=== PATIENT | male | born 1970 | race Caucasian/White ===

== ENCOUNTER 2021-03-23 00:13 | Inpatient (IN) ==
[2021-03-23] MEDS ORDERED: Ondansetron 4 MG/2 ML VIAL IVP PRN ×4 (02:15→11:17)
[2021-03-23] MEDS ORDERED: Naloxone 0.4 MG/ML INJ IVP PRN ×4 (02:15→11:17)
[2021-03-23] MEDS ORDERED: Insulin Regular, Human 100 UNIT/ML IV PRN ×2 (02:20→11:17)
[2021-03-23] MEDS ORDERED: *HR* Dextrose 50 % in Water (Vial) 50 ML VIAL IVP PRN (02:20)
[2021-03-23] MEDS: 0.9 % Sodium Chloride w KCl 20 MEQ/1,000 ML MLS IVC SCH ×7 (03:36→23:41)
[2021-03-23 04:14] LABS: VBG HCO3 12 mEq/L (21-27); VBG PCO2 29 mmHg (41-51); VBG PH 7.24 pH Units (7.32-7.42); VBG PO2 40 mmHg (25-50)
[2021-03-23 04:16] LABS: Basophils # 0.1 K/mcL (0.0-0.2); Basophils % 0.6 %; Eosinophils # 0.1 K/mcL (0.0-0.6); Eosinophils % 0.3 %; Hematocrit 40.2 % (37.5-50.1); Hemoglobin 13.2 g/dL (12.9-16.9); Immature Granulocytes % 1.6 % (0-4); Lymphocytes # 1.6 K/mcL (0.6-4.6); Lymphocytes % 10.1 %; Mean Corpuscular HGB Conc 32.8 g/dL (31.6-35.5); Mean Corpuscular Hemoglobin 30.1 pg (28.0-33.3); Mean Corpuscular Volume 91.6 fL (83.0-100.0); Mean Platelet Volume 10.9 fL (9.4-12.4); Monocytes # 1.1 K/mcL (0.0-1.3); Neutrophils # 12.6 K/mcL (1.6-8.9); Platelet Count 259 K/mcL (140-400); Red Blood Count 4.39 M/mcL (4.19-5.50); Red Cell Distribution Width 11.9 % (11.5-14.5); Segmented Neutrophils % 80.4 %; White Blood Count 15.7 K/mcL (4.3-11.1)
[2021-03-23 04:33] LABS: BUN/Creatinine Ratio 22 (6-26); Blood Urea Nitrogen 27 mg/dL (6-20); Calcium 8.6 mg/dL (8.6-10.3); Carbon Dioxide 11 mEq/L (23-29); Chloride 98 mEq/L (98-107); Glucose 199 mg/dL (70-105); Magnesium 2.1 mg/dL (1.6-2.6); Osmolality,Calculated 277 (280-300); Phosphorous 3.1 mg/dL (2.7-4.5); Potassium 3.8 mEq/L (3.5-5.1); Sodium 128 mEq/L (136-145); eGFR For African Americans > 60 (> 60); eGFR For Non-African Americans > 60 (> 60)
[2021-03-23 04:42] LABS: Estimated Average Glucose 367 mg/dl; Hemoglobin A1C 14.4 %
[2021-03-23] MEDS: D5% in 0.45% NACL w KCl 20 MEQ/1,000 ML MLS IVC PRN ×4 (04:47→18:09)
[2021-03-23] MEDS ORDERED: *HR* Heparin 5,000 UNIT/ML VIAL SQ SCH (06:00)
[2021-03-23] MEDS ORDERED: Cefepime HCl 2,000 MG in Water for inj. (sterile) 20 ML IVP SCH (06:00)
[2021-03-23 06:43] LABS: INR 1.2; Prothrombin Time 13.6 Seconds (9.4-12.1)
[2021-03-23 06:45] LABS: Activated Partial Thrombo Time 26.3 Seconds (26.0-36.0)
[2021-03-23 06:57] LABS: BUN/Creatinine Ratio 23 (6-26); Blood Urea Nitrogen 25 mg/dL (6-20); Calcium 8.4 mg/dL (8.6-10.3); Carbon Dioxide 14 mEq/L (23-29); Chloride 100 mEq/L (98-107); Glucose 215 mg/dL (70-105); Osmolality,Calculated 277 (280-300); Potassium 3.7 mEq/L (3.5-5.1); Sodium 128 mEq/L (136-145); eGFR For African Americans > 60 (> 60); eGFR For Non-African Americans > 60 (> 60)
[2021-03-23 07:09] LABS: Fibrinogen > 1000 mg/dL (169-393)
[2021-03-23] MEDS ORDERED: Clindamycin 600 MG/50 ML 600 MG/50 ML IV.SOLN IVPB SCH (08:00)
[2021-03-23] MEDS ORDERED: MetroNIDAZOLE 500 MG/100 ML 500 MG/100 ML BAG IVPB SCH (08:00)
[2021-03-23] MEDS ORDERED: *HR* FentaNYL (PF) 100 MCG/2 ML VIAL ONE (09:14)
[2021-03-23] MEDS ORDERED: *HR* Midazolam HCl 2 MG/2 ML VIAL ONE (09:14)
[2021-03-23] MEDS ORDERED: *HR* Propofol 200 MG/20 ML VIAL IVP ONE (09:14)
[2021-03-23] MEDS ORDERED: Ondansetron 4 MG/2 ML VIAL ONE (09:16)
[2021-03-23] MEDS ORDERED: Lidocaine HCL 4 ML Topical Solution (Laryng-O-Jet Kit Sterile Pak) TP ONE (09:16)
[2021-03-23] MEDS ORDERED: Lidocaine -MPF 2% 2 ML VIAL ONE (09:16)
[2021-03-23] MEDS ORDERED: *HR* Succinylcholine 200 MG/10 ML VIAL IVP ONE (09:16)
[2021-03-23] MEDS ORDERED: *HR* FentaNYL (PF) 100 MCG/2 ML VIAL IVP PRN ×2 (09:31→11:17)
[2021-03-23] MEDS ORDERED: Nitroglycerin 0.4 MG TAB.SUBL SL PRN ×2 (09:31→11:17)
[2021-03-23] MEDS ORDERED: Albuterol 2.5 MG/3 ML NEBULIZER IH PRN ×2 (09:31→11:17)
[2021-03-23] MEDS ORDERED: Vancomycin 1,250 MG/262.5 ML IV.SOLN IVPB SCH (10:00)
[2021-03-23] MEDS: *HR* Dextrose 50 % in Water (Vial) 50 ML VIAL IVP PRN (11:39)
[2021-03-23 12:02] LABS: BUN/Creatinine Ratio 21 (6-26); Blood Urea Nitrogen 21 mg/dL (6-20); Calcium 8.2 mg/dL (8.6-10.3); Carbon Dioxide 14 mEq/L (23-29); Chloride 106 mEq/L (98-107); Glucose 63 mg/dL (70-105); Osmolality,Calculated 271 (280-300); Sodium 130 mEq/L (136-145); eGFR For African Americans > 60 (> 60); eGFR For Non-African Americans > 60 (> 60)
[2021-03-23 12:04] LABS: VBG HCO3 17 mEq/L (21-27); VBG PCO2 31 mmHg (41-51); VBG PH 7.36 pH Units (7.32-7.42); VBG PO2 201 mmHg (25-50)
[2021-03-23] MEDS: Cefepime HCl 2,000 MG in Water for inj. (sterile) 20 ML IVP SCH ×2 (13:56→21:57)
[2021-03-23 14:45] LABS: BUN/Creatinine Ratio 21 (6-26); Blood Urea Nitrogen 22 mg/dL (6-20); Calcium 8.4 mg/dL (8.6-10.3); Carbon Dioxide 13 mEq/L (23-29); Chloride 104 mEq/L (98-107); Glucose 184 mg/dL (70-105); Osmolality,Calculated 272 (280-300); Potassium 4.7 mEq/L (3.5-5.1); Sodium 127 mEq/L (136-145); eGFR For African Americans > 60 (> 60); eGFR For Non-African Americans > 60 (> 60)
[2021-03-23 16:06] LABS: VBG HCO3 16 mEq/L (21-27); VBG PCO2 30 mmHg (41-51); VBG PH 7.33 pH Units (7.32-7.42); VBG PO2 119 mmHg (25-50)
[2021-03-23 16:22] LABS: BUN/Creatinine Ratio 20 (6-26); Blood Urea Nitrogen 23 mg/dL (6-20); Carbon Dioxide 15 mEq/L (23-29); Chloride 105 mEq/L (98-107); Glucose 200 mg/dL (70-105); Osmolality,Calculated 275 (280-300); Potassium 4.6 mEq/L (3.5-5.1); Sodium 128 mEq/L (136-145); eGFR For African Americans > 60 (> 60); eGFR For Non-African Americans > 60 (> 60)
[2021-03-23] MEDS: MetroNIDAZOLE 500 MG/100 ML 500 MG/100 ML BAG IVPB SCH (16:22)
[2021-03-23] MEDS: *HR* Heparin 5,000 UNIT/ML VIAL SQ SCH (16:23)
[2021-03-23 19:42] LABS: VBG HCO3 16 mEq/L (21-27); VBG PCO2 30 mmHg (41-51); VBG PH 7.34 pH Units (7.32-7.42); VBG PO2 101 mmHg (25-50)
[2021-03-23 19:58] LABS: BUN/Creatinine Ratio 18 (6-26); Blood Urea Nitrogen 22 mg/dL (6-20); Calcium 8.3 mg/dL (8.6-10.3); Carbon Dioxide 16 mEq/L (23-29); Chloride 111 mEq/L (98-107); Glucose 127 mg/dL (70-105); Osmolality,Calculated 267 (280-300); Potassium 3.9 mEq/L (3.5-5.1); Sodium 126 mEq/L (136-145); eGFR For African Americans > 60 (> 60); eGFR For Non-African Americans > 60 (> 60)
[2021-03-23] MEDS: Vancomycin 1,250 MG/262.5 ML IV.SOLN IVPB SCH (21:57)
[2021-03-24] MEDS: D5% in 0.45% NACL w KCl 20 MEQ/1,000 ML MLS IVC PRN ×2 (01:03→07:43)
[2021-03-24] MEDS: MetroNIDAZOLE 500 MG/100 ML 500 MG/100 ML BAG IVPB SCH ×4 (01:04→23:16)
[2021-03-24 01:58] LABS: BUN/Creatinine Ratio 18 (6-26); Blood Urea Nitrogen 21 mg/dL (6-20); Calcium 8.1 mg/dL (8.6-10.3); Carbon Dioxide 14 mEq/L (23-29); Chloride 109 mEq/L (98-107); Glucose 118 mg/dL (70-105); Osmolality,Calculated 276 (280-300); Potassium 4.3 mEq/L (3.5-5.1); Sodium 131 mEq/L (136-145); eGFR For African Americans > 60 (> 60); eGFR For Non-African Americans > 60 (> 60)
[2021-03-24] MEDS: 0.9 % Sodium Chloride w KCl 20 MEQ/1,000 ML MLS IVC SCH ×3 (02:36→07:46)
[2021-03-24] MEDS ORDERED: Permethrin Cream Rinse 60 ML LIQUID TP ONE (03:57)
[2021-03-24] MEDS: *HR* Heparin 5,000 UNIT/ML VIAL SQ SCH ×2 (04:43→18:27)
[2021-03-24] MEDS: Cefepime HCl 2,000 MG in Water for inj. (sterile) 20 ML IVP SCH ×3 (04:52→21:26)
[2021-03-24 05:03] LABS: Basophils % 0.2 %; Hematocrit 35.1 % (37.5-50.1); Immature Granulocytes % 1.6 % (0-4); Lymphocytes # 0.8 K/mcL (0.6-4.6); Lymphocytes % 6.2 %; Mean Corpuscular HGB Conc 34.2 g/dL (31.6-35.5); Mean Corpuscular Hemoglobin 30.5 pg (28.0-33.3); Mean Corpuscular Volume 89.1 fL (83.0-100.0); Monocytes # 0.9 K/mcL (0.0-1.3); Monocytes % 7.3 %; Neutrophils # 10.2 K/mcL (1.6-8.9); Platelet Count 254 K/mcL (140-400); Red Blood Count 3.94 M/mcL (4.19-5.50); Red Cell Distribution Width 11.8 % (11.5-14.5); Segmented Neutrophils % 84.7 %; White Blood Count 12.1 K/mcL (4.3-11.1)
[2021-03-24 05:20] LABS: BUN/Creatinine Ratio 17 (6-26); Blood Urea Nitrogen 20 mg/dL (6-20); Calcium 8.2 mg/dL (8.6-10.3); Carbon Dioxide 14 mEq/L (23-29); Chloride 108 mEq/L (98-107); Glucose 221 mg/dL (70-105); Osmolality,Calculated 281 (280-300); Sodium 131 mEq/L (136-145); eGFR For African Americans > 60 (> 60); eGFR For Non-African Americans > 60 (> 60)
[2021-03-24] MEDS: Vancomycin 1,250 MG/262.5 ML IV.SOLN IVPB SCH ×2 (09:08→23:12)
[2021-03-24] MEDS: *HR* Dextrose 50 % in Water (Vial) 50 ML VIAL IVP PRN (10:07)
[2021-03-24 10:16] LABS: BUN/Creatinine Ratio 16 (6-26); Blood Urea Nitrogen 20 mg/dL (6-20); Calcium 8.4 mg/dL (8.6-10.3); Carbon Dioxide 17 mEq/L (23-29); Chloride 109 mEq/L (98-107); Glucose 83 mg/dL (70-105); Osmolality,Calculated 278 (280-300); Potassium 3.7 mEq/L (3.5-5.1); Sodium 133 mEq/L (136-145); eGFR For African Americans > 60 (> 60); eGFR For Non-African Americans > 60 (> 60)
[2021-03-24] MEDS ORDERED: Insulin DETEMIR 100 UNIT/ML X5UNITS SUBQ ONE (13:59)
[2021-03-24 14:53] LABS: BUN/Creatinine Ratio 18 (6-26); Blood Urea Nitrogen 21 mg/dL (6-20); Carbon Dioxide 15 mEq/L (23-29); Chloride 108 mEq/L (98-107); Glucose 265 mg/dL (70-105); Osmolality,Calculated 284 (280-300); Potassium 3.9 mEq/L (3.5-5.1); Sodium 131 mEq/L (136-145); eGFR For African Americans > 60 (> 60); eGFR For Non-African Americans > 60 (> 60)
[2021-03-24] MEDS ORDERED: D5% in Water 1,000 ML IVC PRN (16:04)
[2021-03-24] MEDS ORDERED: Dextrose Gel 15 GM/37.5 ML TUBE PO PRN ×2 (16:04)
[2021-03-24] MEDS ORDERED: *HR* Dextrose 50 % in Water (Vial) 50 ML VIAL IVP PRN (16:04)
[2021-03-24] MEDS: polyethylene glycoL 3350 17 GM POWD.PACK PO SCH (18:27)
[2021-03-24] MEDS: Insulin LISPRO 300 UNITS/3 ML VIAL SUBQ SCH ×2 (18:27→21:28)
[2021-03-24] MEDS: Sennosides/Docusate Sodium TABLET PO SCH (21:26)
[2021-03-24] MEDS: Nicotine 14 MG PATCH.TD24 TD SCH (22:04)
[2021-03-25 01:04] LABS: Hematocrit 35.6 % (37.5-50.1); Hemoglobin 11.7 g/dL (12.9-16.9); Mean Corpuscular HGB Conc 32.9 g/dL (31.6-35.5); Mean Corpuscular Hemoglobin 29.3 pg (28.0-33.3); Mean Corpuscular Volume 89.2 fL (83.0-100.0); Mean Platelet Volume 10.5 fL (9.4-12.4); Platelet Count 259 K/mcL (140-400); Red Blood Count 3.99 M/mcL (4.19-5.50); White Blood Count 9.7 K/mcL (4.3-11.1)
[2021-03-25 01:45] LABS: BUN/Creatinine Ratio 17 (6-26); Blood Urea Nitrogen 19 mg/dL (6-20); Calcium 8.3 mg/dL (8.6-10.3); Carbon Dioxide 14 mEq/L (23-29); Chloride 110 mEq/L (98-107); Glucose 183 mg/dL (70-105); Osmolality,Calculated 281 (280-300); Potassium 3.8 mEq/L (3.5-5.1); Sodium 132 mEq/L (136-145); eGFR For African Americans > 60 (> 60); eGFR For Non-African Americans > 60 (> 60)
[2021-03-25] MEDS: Cefepime HCl 2,000 MG in Water for inj. (sterile) 20 ML IVP SCH ×3 (05:55→21:21)
[2021-03-25] MEDS: *HR* Heparin 5,000 UNIT/ML VIAL SQ SCH ×2 (05:55→16:11)
[2021-03-25] MEDS: Vancomycin 1,250 MG/262.5 ML IV.SOLN IVPB SCH ×2 (09:53→21:22)
[2021-03-25] MEDS: MetroNIDAZOLE 500 MG/100 ML 500 MG/100 ML BAG IVPB SCH ×3 (09:56→23:14)
[2021-03-25] MEDS: polyethylene glycoL 3350 17 GM POWD.PACK PO SCH (09:59)
[2021-03-25] MEDS: Insulin LISPRO 300 UNITS/3 ML VIAL SUBQ SCH ×4 (09:59→21:23)
[2021-03-25] MEDS: Sennosides/Docusate Sodium TABLET PO SCH ×2 (09:59→21:23)
[2021-03-25] MEDS: Nicotine 14 MG PATCH.TD24 TD SCH (09:59)
[2021-03-25] MEDS: Insulin DETEMIR 100 UNIT/ML X5UNITS SUBQ SCH (12:42)
[2021-03-26 04:48] LABS: VBG HCO3 19 mEq/L (21-27); VBG PCO2 31 mmHg (41-51); VBG PO2 92 mmHg (25-50)
[2021-03-26 05:12] LABS: Hematocrit 35.5 % (37.5-50.1); Hemoglobin 12.1 g/dL (12.9-16.9); Mean Corpuscular HGB Conc 34.1 g/dL (31.6-35.5); Mean Corpuscular Hemoglobin 30.3 pg (28.0-33.3); Mean Corpuscular Volume 88.8 fL (83.0-100.0); Mean Platelet Volume 10.4 fL (9.4-12.4); Platelet Count 279 K/mcL (140-400); Red Cell Distribution Width 11.9 % (11.5-14.5)
[2021-03-26 05:28] LABS: BUN/Creatinine Ratio 16 (6-26); Blood Urea Nitrogen 16 mg/dL (6-20); Calcium 8.6 mg/dL (8.6-10.3); Carbon Dioxide 21 mEq/L (23-29); Chloride 108 mEq/L (98-107); Glucose 112 mg/dL (70-105); Osmolality,Calculated 282 (280-300); Potassium 3.8 mEq/L (3.5-5.1); Sodium 135 mEq/L (136-145); eGFR For African Americans > 60 (> 60); eGFR For Non-African Americans > 60 (> 60)
[2021-03-26] MEDS: Cefepime HCl 2,000 MG in Water for inj. (sterile) 20 ML IVP SCH ×2 (06:39→15:40)
[2021-03-26] MEDS: *HR* Heparin 5,000 UNIT/ML VIAL SQ SCH (06:39)
[2021-03-26] MEDS: Insulin LISPRO 300 UNITS/3 ML VIAL SUBQ SCH ×2 (08:49→15:33)
[2021-03-26] MEDS: Sennosides/Docusate Sodium TABLET PO SCH (08:50)
[2021-03-26] MEDS: Nicotine 14 MG PATCH.TD24 TD SCH (08:50)
[2021-03-26] MEDS: polyethylene glycoL 3350 17 GM POWD.PACK PO SCH (08:50)
[2021-03-26] MEDS: MetroNIDAZOLE 500 MG/100 ML 500 MG/100 ML BAG IVPB SCH ×2 (08:51→15:42)
[2021-03-26] MEDS: Insulin DETEMIR 100 UNIT/ML X5UNITS SUBQ SCH (08:52)
[2021-03-26] MEDS: Vancomycin 1,250 MG/262.5 ML IV.SOLN IVPB SCH (10:10)
[2021-03-26] MEDS ORDERED: Nystatin Cream 15 GM TUBE TP SCH (14:00)
[2021-03-26] MEDS ORDERED: Ketoconazole 2% CRM 15 GM TUBE TP SCH (14:00)
[2021-03-26] MEDS ORDERED: Clotrimazole 1% CRM 15 GM TUBE TP SCH (14:30)
[2021-03-26] MEDS ORDERED: Isovue-370 500 ML BOTTLE IVP ONE (14:34)
[2021-03-26] MEDS ORDERED: Bupivacaine/EPI 1:200k 0.25% 50 ML VIAL ONE (17:01)
[2021-03-26] MEDS ORDERED: ROPIVACAINE/PF/NS 0.25% 1 EACH SYRINGE INTRAART ONE (17:01)
[2021-03-26] MEDS ORDERED: *HR* FentaNYL (PF) 100 MCG/2 ML VIAL ONE (17:31)
[2021-03-26] MEDS ORDERED: Lidocaine -MPF 2% 2 ML VIAL ONE (17:31)
[2021-03-26] MEDS ORDERED: *HR* Midazolam HCl 2 MG/2 ML VIAL ONE (17:32)
[2021-03-26] MEDS ORDERED: *HR* Propofol 200 MG/20 ML VIAL IVP ONE (17:32)
[2021-03-26] MEDS ORDERED: Ondansetron 4 MG/2 ML VIAL ONE (17:33)
[2021-03-26] MEDS ORDERED: Bupivacaine-MPF 0.25% 10 ML VIAL ONE (17:55)
[2021-03-26] MEDS ORDERED: Famotidine 20 MG/2 ML VIAL ONE (17:57)
[2021-03-26] MEDS ORDERED: Acetaminophen IV 1,000 MG/100 ML BAG IVPB ONE (17:57)
[2021-03-26] MEDS ORDERED: D5% in Water 1,000 ML IVC PRN (19:44)
[2021-03-26] MEDS ORDERED: Naloxone 0.4 MG/ML INJ IVP PRN (19:44)
[2021-03-26] MEDS ORDERED: Ondansetron 4 MG/2 ML VIAL IVP PRN (19:44)
[2021-03-26] MEDS ORDERED: Dextrose Gel 15 GM/37.5 ML TUBE PO PRN ×2 (19:44)
[2021-03-26] MEDS ORDERED: *HR* Dextrose 50 % in Water (Vial) 50 ML VIAL IVP PRN (19:44)
[2021-03-26] MEDS ORDERED: Nitroglycerin 0.4 MG TAB.SUBL SL PRN (19:44)
[2021-03-26] MEDS ORDERED: Vancomycin 1,250 MG/262.5 ML IV.SOLN IVPB SCH (22:00)
[2021-03-27] MEDS: Insulin LISPRO 300 UNITS/3 ML VIAL SUBQ SCH ×5 (00:53→22:51)
[2021-03-27] MEDS: Cefepime HCl 2,000 MG in Water for inj. (sterile) 20 ML IVP SCH ×4 (00:54→22:51)
[2021-03-27] MEDS: Sennosides/Docusate Sodium TABLET PO SCH ×3 (00:54→23:08)
[2021-03-27] MEDS: Clotrimazole 1% CRM 15 GM TUBE TP SCH ×2 (00:56→07:32)
[2021-03-27] MEDS: MetroNIDAZOLE 500 MG/100 ML 500 MG/100 ML BAG IVPB SCH ×3 (01:01→16:46)
[2021-03-27] MEDS: *HR* Heparin 5,000 UNIT/ML VIAL SQ SCH ×2 (06:08→16:49)
[2021-03-27 06:40] LABS: Hematocrit 37.9 % (37.5-50.1); Hemoglobin 12.5 g/dL (12.9-16.9); Mean Corpuscular Hemoglobin 30.1 pg (28.0-33.3); Mean Corpuscular Volume 91.3 fL (83.0-100.0); Mean Platelet Volume 10.6 fL (9.4-12.4); Platelet Count 257 K/mcL (140-400); Red Blood Count 4.15 M/mcL (4.19-5.50); Red Cell Distribution Width 12.1 % (11.5-14.5)
[2021-03-27 06:42] LABS: White Blood Count 16.5 K/mcL (4.3-11.1)
[2021-03-27 06:59] LABS: BUN/Creatinine Ratio 20 (6-26); Blood Urea Nitrogen 23 mg/dL (6-20); Calcium 8.5 mg/dL (8.6-10.3); Carbon Dioxide 18 mEq/L (23-29); Chloride 98 mEq/L (98-107); Glucose 423 mg/dL (70-105); Osmolality,Calculated 292 (280-300); Potassium 4.6 mEq/L (3.5-5.1); Sodium 130 mEq/L (136-145); eGFR For African Americans > 60 (> 60); eGFR For Non-African Americans > 60 (> 60)
[2021-03-27] MEDS: Nicotine 14 MG PATCH.TD24 TD SCH (07:29)
[2021-03-27] MEDS: polyethylene glycoL 3350 17 GM POWD.PACK PO SCH (07:32)
[2021-03-27] MEDS ORDERED: Insulin DETEMIR 100 UNIT/ML X5UNITS SUBQ SCH (09:00)
[2021-03-27 11:27] LABS: Creatine Kinase 32 Units/L (30-223)
[2021-03-27] MEDS: Ringers Solution, Lactated 1,000 ML IVC SCH ×2 (12:13→22:47)
[2021-03-27] MEDS ORDERED: Insulin DETEMIR 100 UNIT/ML X5UNITS SUBQ ONE (14:28)
[2021-03-27] MEDS ORDERED: Insulin Human Regular 8 UNIT in 0.9 % Sodium Chloride 10 ML IV ONE (17:01)
[2021-03-27] MEDS: Insulin DETEMIR 100 UNIT/ML X5UNITS SUBQ SCH (22:50)
[2021-03-28] MEDS: MetroNIDAZOLE 500 MG/100 ML 500 MG/100 ML BAG IVPB SCH ×2 (01:08→08:20)
[2021-03-28 06:00] LABS: Hematocrit 33.6 % (37.5-50.1); Hemoglobin 11.6 g/dL (12.9-16.9); Mean Corpuscular HGB Conc 34.5 g/dL (31.6-35.5); Mean Corpuscular Hemoglobin 30.5 pg (28.0-33.3); Mean Corpuscular Volume 88.4 fL (83.0-100.0); Platelet Count 234 K/mcL (140-400); Red Cell Distribution Width 11.9 % (11.5-14.5); White Blood Count 16.8 K/mcL (4.3-11.1)
[2021-03-28] MEDS: Cefepime HCl 2,000 MG in Water for inj. (sterile) 20 ML IVP SCH ×3 (06:03→21:55)
[2021-03-28] MEDS: *HR* Heparin 5,000 UNIT/ML VIAL SQ SCH ×2 (06:04→17:14)
[2021-03-28 06:38] LABS: BUN/Creatinine Ratio 24 (6-26); Blood Urea Nitrogen 22 mg/dL (6-20); Calcium 8.1 mg/dL (8.6-10.3); Carbon Dioxide 23 mEq/L (23-29); Chloride 106 mEq/L (98-107); Glucose 136 mg/dL (70-105); Osmolality,Calculated 281 (280-300); Potassium 3.4 mEq/L (3.5-5.1); Sodium 133 mEq/L (136-145); eGFR For African Americans > 60 (> 60); eGFR For Non-African Americans > 60 (> 60)
[2021-03-28] MEDS: Sennosides/Docusate Sodium TABLET PO SCH ×2 (08:19→23:02)
[2021-03-28] MEDS: Nicotine 14 MG PATCH.TD24 TD SCH (08:19)
[2021-03-28] MEDS: Insulin LISPRO 300 UNITS/3 ML VIAL SUBQ SCH ×4 (08:20→23:02)
[2021-03-28] MEDS: polyethylene glycoL 3350 17 GM POWD.PACK PO SCH (08:20)
[2021-03-28] MEDS: Insulin DETEMIR 100 UNIT/ML X5UNITS SUBQ SCH ×2 (08:22→20:44)
[2021-03-28] MEDS: Nystatin Cream 15 GM TUBE TP SCH ×2 (11:09→22:00)
[2021-03-28] MEDS: metroNIDAZOLE 500 MG TABLET PO SCH (20:42)
[2021-03-28] MEDS: Ringers Solution, Lactated 1,000 ML IVC SCH ×3 (20:44→23:03)
[2021-03-29] MEDS: Ringers Solution, Lactated 1,000 ML IVC SCH ×3 (04:23→23:57)
[2021-03-29 05:05] LABS: Hematocrit 32.8 % (37.5-50.1); Mean Corpuscular HGB Conc 33.5 g/dL (31.6-35.5); Mean Corpuscular Hemoglobin 30.3 pg (28.0-33.3); Mean Corpuscular Volume 90.4 fL (83.0-100.0); Platelet Count 192 K/mcL (140-400); Red Blood Count 3.63 M/mcL (4.19-5.50); Red Cell Distribution Width 11.9 % (11.5-14.5); White Blood Count 13.1 K/mcL (4.3-11.1)
[2021-03-29 05:21] LABS: BUN/Creatinine Ratio 21 (6-26); Blood Urea Nitrogen 18 mg/dL (6-20); Calcium 8.1 mg/dL (8.6-10.3); Carbon Dioxide 27 mEq/L (23-29); Chloride 104 mEq/L (98-107); Glucose 97 mg/dL (70-105); Osmolality,Calculated 284 (280-300); Potassium 3.4 mEq/L (3.5-5.1); Sodium 136 mEq/L (136-145); eGFR For African Americans > 60 (> 60); eGFR For Non-African Americans > 60 (> 60)
[2021-03-29] MEDS: Cefepime HCl 2,000 MG in Water for inj. (sterile) 20 ML IVP SCH (05:48)
[2021-03-29] MEDS: *HR* Heparin 5,000 UNIT/ML VIAL SQ SCH ×3 (05:52→17:42)
[2021-03-29] MEDS: Vancomycin 1,500 MG/265 ML IV.SOLN IVPB SCH (05:52)
[2021-03-29] MEDS: Clotrimazole 1% CRM 15 GM TUBE TP SCH (07:16)
[2021-03-29] MEDS: Insulin LISPRO 300 UNITS/3 ML VIAL SUBQ SCH ×4 (07:45→19:46)
[2021-03-29] MEDS: Sennosides/Docusate Sodium TABLET PO SCH ×2 (08:28→19:41)
[2021-03-29] MEDS: metroNIDAZOLE 500 MG TABLET PO SCH ×2 (08:28→19:41)
[2021-03-29] MEDS: polyethylene glycoL 3350 17 GM POWD.PACK PO SCH (08:29)
[2021-03-29] MEDS: Nicotine 14 MG PATCH.TD24 TD SCH (08:29)
[2021-03-29] MEDS: Nystatin Cream 15 GM TUBE TP SCH ×2 (10:06→19:48)
[2021-03-29] MEDS: Insulin DETEMIR 100 UNIT/ML X5UNITS SUBQ SCH ×2 (10:08→21:08)
[2021-03-29] MEDS: cefTRIAXone 2,000 MG in 0.9 % Sodium Chloride Mini Bag 100 ML IVPB SCH (14:25)
[2021-03-30] MEDS: *HR* Heparin 5,000 UNIT/ML VIAL SQ SCH ×2 (05:42→17:51)
[2021-03-30] MEDS: Vancomycin 1,500 MG/265 ML IV.SOLN IVPB SCH (05:43)
[2021-03-30] MEDS: Insulin LISPRO 300 UNITS/3 ML VIAL SUBQ SCH ×4 (07:39→19:12)
[2021-03-30] MEDS: Ringers Solution, Lactated 1,000 ML IVC SCH ×2 (11:16→19:14)
[2021-03-30] MEDS: cefTRIAXone 2,000 MG in 0.9 % Sodium Chloride Mini Bag 100 ML IVPB SCH (11:19)
[2021-03-30] MEDS: Sennosides/Docusate Sodium TABLET PO SCH ×2 (11:23→20:48)
[2021-03-30] MEDS: metroNIDAZOLE 500 MG TABLET PO SCH ×2 (11:23→20:49)
[2021-03-30] MEDS: polyethylene glycoL 3350 17 GM POWD.PACK PO SCH (11:23)
[2021-03-30] MEDS: Nicotine 14 MG PATCH.TD24 TD SCH (11:24)
[2021-03-30] MEDS: Insulin DETEMIR 100 UNIT/ML X5UNITS SUBQ SCH (11:24)
[2021-03-30 15:02] LABS: Hematocrit 32.5 % (37.5-50.1); Hemoglobin 10.7 g/dL (12.9-16.9); Mean Corpuscular HGB Conc 32.9 g/dL (31.6-35.5); Mean Corpuscular Hemoglobin 29.8 pg (28.0-33.3); Mean Corpuscular Volume 90.5 fL (83.0-100.0); Platelet Count 158 K/mcL (140-400); Red Blood Count 3.59 M/mcL (4.19-5.50); Red Cell Distribution Width 11.8 % (11.5-14.5); White Blood Count 12.4 K/mcL (4.3-11.1)
[2021-03-30 15:23] LABS: BUN/Creatinine Ratio 14 (6-26); Blood Urea Nitrogen 11 mg/dL (6-20); Carbon Dioxide 31 mEq/L (23-29); Chloride 98 mEq/L (98-107); Glucose 221 mg/dL (70-105); Osmolality,Calculated 282 (280-300); Potassium 3.6 mEq/L (3.5-5.1); Sodium 133 mEq/L (136-145); eGFR For African Americans > 60 (> 60); eGFR For Non-African Americans > 60 (> 60)
[2021-03-30] MEDS: Nystatin Cream 15 GM TUBE TP SCH ×2 (17:51→20:54)
[2021-03-30] MEDS ORDERED: Insulin DETEMIR 100 UNIT/ML X5UNITS SUBQ SCH (21:00)
[2021-03-31] MEDS: *HR* Heparin 5,000 UNIT/ML VIAL SQ SCH ×2 (06:17→17:29)
[2021-03-31 07:03] LABS: Hematocrit 33.9 % (37.5-50.1); Hemoglobin 11.2 g/dL (12.9-16.9); Mean Corpuscular Hemoglobin 29.8 pg (28.0-33.3); Mean Corpuscular Volume 90.2 fL (83.0-100.0); Mean Platelet Volume 10.2 fL (9.4-12.4); Platelet Count 171 K/mcL (140-400); Red Blood Count 3.76 M/mcL (4.19-5.50); Red Cell Distribution Width 11.7 % (11.5-14.5); White Blood Count 14.7 K/mcL (4.3-11.1)
[2021-03-31 07:20] LABS: BUN/Creatinine Ratio 13 (6-26); Blood Urea Nitrogen 9 mg/dL (6-20); Calcium 8.5 mg/dL (8.6-10.3); Carbon Dioxide 31 mEq/L (23-29); Chloride 99 mEq/L (98-107); Glucose 57 mg/dL (70-105); Magnesium 1.7 mg/dL (1.6-2.6); Osmolality,Calculated 274 (280-300); Potassium 3.7 mEq/L (3.5-5.1); Sodium 134 mEq/L (136-145); eGFR For African Americans > 60 (> 60); eGFR For Non-African Americans > 60 (> 60)
[2021-03-31] MEDS: Insulin LISPRO 300 UNITS/3 ML VIAL SUBQ SCH ×4 (07:58→21:46)
[2021-03-31] MEDS: polyethylene glycoL 3350 17 GM POWD.PACK PO SCH (08:15)
[2021-03-31] MEDS: Vancomycin 1,500 MG/265 ML IV.SOLN IVPB SCH (08:16)
[2021-03-31] MEDS: Sennosides/Docusate Sodium TABLET PO SCH ×2 (08:16→21:44)
[2021-03-31] MEDS: metroNIDAZOLE 500 MG TABLET PO SCH ×2 (08:16→21:44)
[2021-03-31] MEDS: Nicotine 14 MG PATCH.TD24 TD SCH (08:16)
[2021-03-31] MEDS: Nystatin Cream 15 GM TUBE TP SCH ×2 (08:17→21:45)
[2021-03-31] MEDS: cefTRIAXone 2,000 MG in 0.9 % Sodium Chloride Mini Bag 100 ML IVPB SCH (08:17)
[2021-03-31] MEDS: Insulin DETEMIR 100 UNIT/ML X5UNITS SUBQ SCH ×2 (09:05→21:45)
[2021-03-31] MEDS: predniSONE 20 MG TABLET PO SCH (14:23)
[2021-04-01] MEDS: *HR* Heparin 5,000 UNIT/ML VIAL SQ SCH ×2 (05:51→17:19)
[2021-04-01 06:35] LABS: Hematocrit 35.1 % (37.5-50.1); Hemoglobin 11.5 g/dL (12.9-16.9); Mean Corpuscular HGB Conc 32.8 g/dL (31.6-35.5); Mean Corpuscular Hemoglobin 29.6 pg (28.0-33.3); Mean Corpuscular Volume 90.2 fL (83.0-100.0); Mean Platelet Volume 10.4 fL (9.4-12.4); Platelet Count 211 K/mcL (140-400); Red Blood Count 3.89 M/mcL (4.19-5.50); Red Cell Distribution Width 11.8 % (11.5-14.5); White Blood Count 11.2 K/mcL (4.3-11.1)
[2021-04-01 06:56] LABS: BUN/Creatinine Ratio 17 (6-26); Blood Urea Nitrogen 15 mg/dL (6-20); Calcium 8.4 mg/dL (8.6-10.3); Carbon Dioxide 32 mEq/L (23-29); Chloride 96 mEq/L (98-107); Glucose 357 mg/dL (70-105); Osmolality,Calculated 289 (280-300); Potassium 4.2 mEq/L (3.5-5.1); Sodium 132 mEq/L (136-145); eGFR For African Americans > 60 (> 60); eGFR For Non-African Americans > 60 (> 60)
[2021-04-01] MEDS: Nystatin Cream 15 GM TUBE TP SCH ×2 (08:14→20:12)
[2021-04-01] MEDS: Insulin LISPRO 300 UNITS/3 ML VIAL SUBQ SCH ×4 (08:14→20:11)
[2021-04-01] MEDS: cefTRIAXone 2,000 MG in 0.9 % Sodium Chloride Mini Bag 100 ML IVPB SCH (08:14)
[2021-04-01] MEDS: Sennosides/Docusate Sodium TABLET PO SCH ×2 (08:15→19:49)
[2021-04-01] MEDS: metroNIDAZOLE 500 MG TABLET PO SCH ×2 (08:15→19:49)
[2021-04-01] MEDS: Vancomycin 1,500 MG/265 ML IV.SOLN IVPB SCH (08:15)
[2021-04-01] MEDS: predniSONE 20 MG TABLET PO SCH (08:15)
[2021-04-01] MEDS: Nicotine 14 MG PATCH.TD24 TD SCH (08:16)
[2021-04-01] MEDS: polyethylene glycoL 3350 17 GM POWD.PACK PO SCH (08:16)
[2021-04-01] MEDS: Insulin DETEMIR 100 UNIT/ML X5UNITS SUBQ SCH ×2 (08:27→20:11)
[2021-04-02] MEDS: *HR* Heparin 5,000 UNIT/ML VIAL SQ SCH ×2 (04:27→17:10)
[2021-04-02] MEDS: polyethylene glycoL 3350 17 GM POWD.PACK PO SCH (07:43)
[2021-04-02] MEDS: cefTRIAXone 2,000 MG in 0.9 % Sodium Chloride Mini Bag 100 ML IVPB SCH (08:56)
[2021-04-02] MEDS: Insulin LISPRO 300 UNITS/3 ML VIAL SUBQ SCH ×4 (08:56→20:32)
[2021-04-02] MEDS: Nystatin Cream 15 GM TUBE TP SCH ×2 (08:57→20:38)
[2021-04-02] MEDS: Insulin DETEMIR 100 UNIT/ML X5UNITS SUBQ SCH ×2 (08:57→20:34)
[2021-04-02] MEDS: predniSONE 20 MG TABLET PO SCH (08:58)
[2021-04-02] MEDS: Nicotine 14 MG PATCH.TD24 TD SCH (08:58)
[2021-04-02] MEDS: metroNIDAZOLE 500 MG TABLET PO SCH ×2 (08:58→20:28)
[2021-04-02] MEDS: Sennosides/Docusate Sodium TABLET PO SCH ×2 (08:58→20:26)
[2021-04-02 09:51] LABS: Hematocrit 32.1 % (37.5-50.1); Hemoglobin 10.6 g/dL (12.9-16.9); Mean Corpuscular Hemoglobin 30.5 pg (28.0-33.3); Mean Corpuscular Volume 92.2 fL (83.0-100.0); Mean Platelet Volume 10.1 fL (9.4-12.4); Platelet Count 234 K/mcL (140-400); Red Blood Count 3.48 M/mcL (4.19-5.50); Red Cell Distribution Width 11.9 % (11.5-14.5); White Blood Count 10.9 K/mcL (4.3-11.1)
[2021-04-02 10:10] LABS: BUN/Creatinine Ratio 21 (6-26); Blood Urea Nitrogen 18 mg/dL (6-20); Calcium 8.1 mg/dL (8.6-10.3); Carbon Dioxide 33 mEq/L (23-29); Chloride 99 mEq/L (98-107); Glucose 195 mg/dL (70-105); Osmolality,Calculated 289 (280-300); Potassium 3.7 mEq/L (3.5-5.1); Sodium 136 mEq/L (136-145); eGFR For African Americans > 60 (> 60); eGFR For Non-African Americans > 60 (> 60)
[2021-04-03] MEDS: *HR* Heparin 5,000 UNIT/ML VIAL SQ SCH ×2 (05:22→17:35)
[2021-04-03 06:07] LABS: BUN/Creatinine Ratio 25 (6-26); Blood Urea Nitrogen 21 mg/dL (6-20); Calcium 8.3 mg/dL (8.6-10.3); Carbon Dioxide 33 mEq/L (23-29); Chloride 99 mEq/L (98-107); Glucose 282 mg/dL (70-105); Osmolality,Calculated 295 (280-300); Potassium 3.8 mEq/L (3.5-5.1); Sodium 136 mEq/L (136-145); eGFR For African Americans > 60 (> 60); eGFR For Non-African Americans > 60 (> 60)
[2021-04-03] MEDS: metroNIDAZOLE 500 MG TABLET PO SCH (08:14)
[2021-04-03] MEDS: Sennosides/Docusate Sodium TABLET PO SCH (08:14)
[2021-04-03] MEDS: Nicotine 14 MG PATCH.TD24 TD SCH (08:14)
[2021-04-03] MEDS: predniSONE 20 MG TABLET PO SCH (08:14)
[2021-04-03] MEDS: Insulin LISPRO 300 UNITS/3 ML VIAL SUBQ SCH ×3 (08:15→17:43)
[2021-04-03] MEDS: polyethylene glycoL 3350 17 GM POWD.PACK PO SCH (08:19)
[2021-04-03] MEDS: Insulin DETEMIR 100 UNIT/ML X5UNITS SUBQ SCH (09:00)
[2021-04-03] MEDS: Nystatin Cream 15 GM TUBE TP SCH (09:03)
[2021-04-03] MEDS: cefTRIAXone 2,000 MG in 0.9 % Sodium Chloride Mini Bag 100 ML IVPB SCH (09:33)
[2021-04-03 14:19] VITALS: BP 152/83; PULSE 100; TEMP 98.5; O2SAT 92
[2021-04-03 16:57] LABS: Adenovirus Not Detected (Not Detect); Coronavirus 229E Not Detected (Not Detect); Coronavirus HKU1 Not Detected (Not Detect); Coronavirus NL63 Not Detected (Not Detect); Coronavirus OC43 Not Detected (Not Detect)
[2021-04-03 16:58] LABS: Bordetella Pertussis Not Detected (Not Detect); Chlamydophila pneumoniae Not Detected (Not Detect); Human Metapneumovirus Not Detected (Not Detect); Human Rhinovirus/Enterovirus Not Detected (Not Detect); Influenza A Subtype 2009 H1 Not Detected (Not Detect); Influenza B Not Detected (Not Detect); Mycoplasma pneumoniae Not Detected (Not Detect); Parainfluenza Virus 1 Not Detected (Not Detect); Parainfluenza Virus 2 Not Detected (Not Detect); Parainfluenza Virus 3 Not Detected (Not Detect); Parainfluenza Virus 4 Not Detected (Not Detect); Respiratory Syncytial Virus Not Detected (Not Detect); SARS-CoV-2 Not Detected (Not Detect)
== END 2021-04-03 19:20 | DRG 710 ==
LOC: 2NNU → SUATTDRO 01:54 → 3NENU 03-24 18:56 → 3BNU 03-28 19:20
PROVIDERS: ADMIT Family Medicine; ATTEND Internal Medicine